=== PATIENT | male | born 1985 | race American Indian/Alaskan Native ===

== ENCOUNTER 2016-07-26 08:40 | Emergency (ER) | payer MEDICAID ==
[2016-07-26 08:46] VITALS: BP 92/42; PULSE 102; RESP 19; TEMP 98.4; O2SAT 100; BMI 62.0
[2016-07-26] MEDS ORDERED: Bacitracin Opht OINT 3.5GM OD STA (09:41)
[2016-07-26] MEDS ORDERED: Insulin Regular 100 units/ml IVP ONE (10:33)
--- NOTE | 2016-07-26 10:38 | ED PDOC ---
HPI: Eye Injury/Pain Time Seen by Provider: 07/26/16 09:10 Chief Complaint (Nursing): Eye Problem Chief Complaint (Provider): R eyelid swelling History Per: Patient History/Exam Limitations: no limitations Onset/Duration Of Symptoms: Days (2) Current Symptoms Are (Timing): Still Present Wears Contact Lens?: No Associated Symptoms: Swelling, Itching. denies: Pain, Decreased Vision, FB Sensation, Discharge From Eye Additional Complaint(s): 30yo male c/o R upper eyelid swelling since yesterday. Denies redness to eye, change in vision, discharge, itching to eye or foreign body sensation. Admits to mild discomfort to upper eyelid. Past Medical History Reviewed: Historical Data, Nursing Documentation, Vital Signs Vital Signs: Last Vital Signs Temp 98.4 F 07/26/16 08:44 Pulse 102 H 07/26/16 08:44 Resp 19 07/26/16 08:44 BP 92/42 L 07/26/16 08:44 Pulse Ox 100 07/26/16 08:44 - Medical History PMH: Diabetes, Seizures - Family History Family History: States: Unknown Family Hx - Living Arrangements Living Arrangements: Other (nursing home) - Social History Current smoker - smoking cessation education provided: No Drugs: Denies - Home Medications Home Medications: Ambulatory Orders Medication Instructions Recorded Oseltamivir [Tamiflu] 75 mg PO BID #10 cap 04/24/15 Clindamycin [Cleocin] 300 mg PO TID #21 cap 07/26/16 metFORMIN [glucOPHAGE] 500 mg PO BID #20 tab 07/26/16 - Allergies Allergies/Adverse Reactions: Allergies Allergy/AdvReac Type Severity Reaction Status Date / Time ibuprofen [From Motrin] Allergy NAUSEA Verified 04/23/15 23:10 Review of Systems Constitutional: Negative for: Fever, Chills Eyes: Positive for: Eyelid Inflammation, Redness. Negative for: Pain, Vision Change, Conjunctivae Inflammation Respiratory: Negative for: Cough, Shortness of Breath Gastrointestinal: Negative for: Nausea, Vomiting Genitourinary Male: Negative for: Dysuria, Frequency Musculoskeletal: Negative for: Neck Pain, Shoulder Pain Skin: Negative for: Rash, Lesions, Jaundice Neurological: Negative for: Weakness, Numbness, Headache, Dizziness Psych: Negative for: Anxiety Physical Exam - Reviewed Nursing Documentation Reviewed: Yes - Physical Exam Appears: Positive for: Well, Non-toxic, No Acute Distress Head Exam: Positive for: ATRAUMATIC, NORMAL INSPECTION, NORMOCEPHALIC Skin: Positive for: Normal Color, Warm, DRY Eye Exam: Positive for: EOMI, PERRL. Negative for: Other (R upper lid mild blepharitis; conjunctiva, cornea and margins unremarkable. ) ENT: Positive for: Normal ENT Inspection. Negative for: Pharyngeal Erythema Neck: Positive for: Normal, Painless ROM Cardiovascular/Chest: Positive for: Regular Rate, Rhythm Respiratory: Positive for: CNT, Normal Breath Sounds Gastrointestinal/Abdominal: Positive for: Normal Exam, Bowel Sounds, Soft. Negative for: Tenderness, Guarding Back: Positive for: Normal Inspection Extremity: Positive for: Normal ROM Neurologic/Psych: Positive for: Alert, Oriented. Negative for: Motor/Sensory Deficits, Aphasia - ECG O2 Sat by Pulse Oximetry: 100 Medical Decision Making Medical Decision Making: Pt nonadherent to oral antihyperglycemics. Metformin and low dose insulin ordered (pt requested insulin but does not take as outpatient as "I dont like needles"). Bacitracin ointment given to patient with teaching instructions performed by rfp writer. HR now 80, no signs severe dehydration or DKA. Needs followup w clinic for further testing and medication adherence. Referred ophtho for mild blepharitis if persists. Rec warm compress 4x daily. No signs periorbital or preseptal cellulitis but will cover w oral ABx given hyperglycemia. Disposition - Clinical Impression Clinical Impression: Blepharitis of eyelid of right eye - Disposition Referrals: [facility] [Outside] Tyler Velasco MD [Staff Provider] - Condition: STABLE Additional Instructions: Patient should avoid close contact with others for 5 days. Take medications as directed. See eye doctor, Dr Velasco, in 1-2 days for followup, call today for appointment. Return to ER for any new or worsening symptoms. See clinic for further testing and medications to care for your diabetes. Prescriptions: Clindamycin [Cleocin] 300 mg PO TID #21 cap metFORMIN [glucOPHAGE] 500 mg PO BID #20 tab Instructions: Blepharitis (ED), Diabetic Hyperglycemia (ED)
[2016-07-26] MEDS ORDERED: Insulin Regular 100 units/ml ONE (10:59)
[2016-07-26] MEDS ORDERED: Amoxicillin-Clav 875-125 mg Tab PO SCH (21:00)
== END 2016-07-26 10:50 | disposition home or self-care (01) ==
LOC: H.ER 08:40
DX: H01.021 Squamous blepharitis right upper eyelid (principal); E11.65 Type 2 diabetes mellitus with hyperglycemia

== ENCOUNTER 2017-02-19 18:31 | Observation (INO) | payer MEDICAID ==
[2017-02-19 18:31] VITALS: BMI 62.0
[2017-02-19] MEDS ORDERED: DiphenhydrAMINE 50 mg/ml Inj IM STA (18:47)
[2017-02-19] MEDS ORDERED: methylPREDNISolone 125 MG in Sodium Chloride 0.9% 50 ML IV STA (18:47)
[2017-02-19] MEDS ORDERED: EPINEPHRINE HCL MR ONE (18:51)
[2017-02-19] MEDS ORDERED: Sodium Chloride 0.9% 1,000 ML IV STA (18:55)
[2017-02-19] MEDS ORDERED: DiphenhydrAMINE 50 mg/ml Inj IVP STA (18:59)
[2017-02-19] MEDS ORDERED: EPINEPHrine 1 mg/ml (1:1000) Inj IM ONE (18:59)
--- NOTE | 2017-02-19 19:08 | ED PDOC ---
HPI: Allergic Reaction Time Seen by Provider: 02/19/17 18:55 Chief Complaint (Nursing): Allergic Reaction Chief Complaint (Provider): Allergic Reaction History Per: Patient History/Exam Limitations: no limitations Additional Complaint(s): 31 y/o male with past medical history of diabetes presents to the ED for evaluation of tongue swelling after drinking lemonade today. Denies difficulty breathing or swallowing. Denies history of allergies. Past Medical History Vital Signs: Last Vital Signs Temp 98.0 F 02/19/17 18:35 Pulse 77 02/19/17 18:35 Resp 16 02/19/17 18:35 BP 111/62 02/19/17 18:35 Pulse Ox 98 02/19/17 18:35 - Medical History PMH: Diabetes, Seizures - Family History Family History: States: Unknown Family Hx - Immunization History Hx Tetanus Toxoid Vaccination: No Hx Influenza Vaccination: No Hx Pneumococcal Vaccination: No - Home Medications Home Medications: Ambulatory Orders Medication Instructions Recorded Clotrimazole 1% Cream [Lotrimin 1%] 1 applic EXT BID #1 tube 09/24/16 metFORMIN [glucOPHAGE] 500 mg PO BID #60 tab 09/24/16 - Allergies Allergies/Adverse Reactions: Allergies Allergy/AdvReac Type Severity Reaction Status Date / Time ibuprofen [From Motrin] Allergy NAUSEA Verified 02/19/17 18:33 Review of Systems ROS Statement: Except As Marked, All Systems Reviewed And Found Negative (As per HPI, otherwise negative) Respiratory: Negative for: Shortness of Breath Gastrointestinal: Negative for: Other (Difficulty swallowing) Musculoskeletal: Positive for: Other (Tongue swelling) Physical Exam - Reviewed Nursing Documentation Reviewed: Yes Vital Signs Reviewed: Yes - Physical Exam Appears: Positive for: Well, Non-toxic, No Acute Distress Head Exam: Positive for: ATRAUMATIC, NORMAL INSPECTION, NORMOCEPHALIC Skin: Positive for: Normal Color, Warm, Dry Eye Exam: Positive for: Normal appearance ENT: Positive for: Normal ENT Inspection, Other (Right side of the tongue is moderately swollen) Neck: Positive for: Normal, Supple Cardiovascular/Chest: Positive for: Regular Rate, Rhythm. Negative for: Murmur Respiratory: Positive for: Normal Breath Sounds. Negative for: Accessory Muscle Use, Respiratory Distress Gastrointestinal/Abdominal: Positive for: Normal Exam, Soft, Other (mild lip swelling noted) Back: Positive for: Normal Inspection Extremity: Positive for: Normal ROM. Negative for: Deformity Neurologic/Psych: Positive for: Alert, Oriented (3) - Laboratory Results Result Diagrams: 02/19/17 19:24 02/19/17 19:24 - ECG O2 Sat by Pulse Oximetry: 98 (RA) Pulse Ox Interpretation: Normal - Progress ED Course And Treament: Re-evaluated 2.5 hours post medications with mild improvement noted, but persistent tongue swelling d/w Dr. Wong Seen by Dr. Law in ED. Does not feel patient need ICU monitor at this time. Patient to be admitted tele observation. Disposition - Clinical Impression Clinical Impression: Allergic reaction - Patient ED Disposition Is Patient to be Admitted: Yes - Disposition Disposition Time: 21:00 Condition: FAIR Forms: [employer] ([place]) Medical Decision Making Medical Decision Making: Time: 18:46 Plan: EKG BMP CBC w/ differential Benadryl 50mg IVP Epinephrine 1:1000 0.3mg IM Pepcid 20mg IVP solumedrol 125mg IVP Sodium chloride 1L IV Content Curator Cont Accucheck EKG documentation Time: 18:50 --Patient was reexamined by Dr. Wong --Benadryl 50mg IVP and Solumedrol 0.3mg 1:1000 epi given in ER Scribe Attestation: Documented by Mimi Christiansen acting as a scribe for RDAHA Corrales. Scribe Attestation: All medical record entries made by the Scribe were at my direction and personally dictated by me. I have reviewed the chart and agree that the record accurately reflects my personal performance of the history, physical exam, medical decision making, and the department course for this patient. I have also personally directed, reviewed, and agree with the discharge instructions and disposition.
--- NOTE | 2017-02-19 19:08 | ED PDOC ---
HPI: Allergic Reaction Chief Complaint (Nursing): Allergic Reaction Past Medical History Vital Signs: Last Vital Signs Temp 98.0 F 02/19/17 18:35 Pulse 77 02/19/17 18:35 Resp 16 02/19/17 18:35 BP 111/62 02/19/17 18:35 Pulse Ox 98 02/19/17 18:35 - Medical History PMH: Diabetes, Seizures - Family History Family History: States: Unknown Family Hx - Immunization History Hx Tetanus Toxoid Vaccination: No Hx Influenza Vaccination: No Hx Pneumococcal Vaccination: No - Home Medications Home Medications: Ambulatory Orders Medication Instructions Recorded Clotrimazole 1% Cream [Lotrimin 1%] 1 applic EXT BID #1 tube 09/24/16 metFORMIN [glucOPHAGE] 500 mg PO BID #60 tab 09/24/16 - Allergies Allergies/Adverse Reactions: Allergies Allergy/AdvReac Type Severity Reaction Status Date / Time ibuprofen [From Motrin] Allergy NAUSEA Verified 02/19/17 18:33 - ECG O2 Sat by Pulse Oximetry: 98 Disposition - Disposition
[2017-02-19 19:30] LABS: BASO % 0.5 % (0.0-2.0); EOS # 0.2 K/uL (0.0-0.7); EOS % 3.3 % (0.0-4.0); HEMOGLOBIN 12.6 g/dL (12.0-18.0); LYMPH # 2.4 K/uL (1.0-4.3); LYMPH % 38.5 % (20.0-40.0); MEAN CELL VOLUME 80.3 fl (80.0-94.0); MEAN CORPUSCULAR HEMOGLOBIN 26.2 pg (27.0-31.0); MEAN CORPUSCULAR HGB CONC 32.6 g/dL (33.0-37.0); MONO # 0.5 K/uL (0.0-0.8); MONO % 7.6 % (0.0-10.0); NEUT # 3.2 K/uL (1.8-7.0); NEUT % 50.1 % (50.0-75.0); NRBC % 0.1 % (0.0-0.0); RBC 4.8 Mil/uL (4.40-5.90); WHITE BLOOD COUNT 6.3 K/uL (4.8-10.8)
[2017-02-19 19:36] LABS: BLOOD UREA NITROGEN 14 mg/dl (9-20); CALCIUM 9.4 mg/dL (8.4-10.2); GFR AFRICAN-AMERICAN > 60; GFR NON-AFRICAN AMERICAN > 60
[2017-02-19] MEDS ORDERED: Albuterol 0.083% Inhal Sol (2.5 mg/3 mL) UD INH PRN (22:29)
[2017-02-19] MEDS ORDERED: Sodium Chloride 0.9% 1,000 ML IV SCH (22:30)
[2017-02-19] MEDS: MethylPREDNISolone 40 mg Vial IVP SCH (22:32)
--- NOTE | 2017-02-19 22:33 | CP.PCM.HP ---
History of Present Illness - History of Present Illness History of Present Illness: PCP: None Chief complaint: Swollen tongue The patient was seen and evaluated in the ED HPI: 31 years old Homeless male with hx of non compliance with medicine, DM II, Asthma and Seizure coming to the ED for evaluation of swollen tongue. He claims that upon waking from a nap, he found his tongue feeing heavy, strange and filling up his mouth. He told the ED staff that he drank Lemonade earlier. this is the first time he is having swelling of the tongue. He has not eaten nor drank any different foods nor medication, no fever, headaches, nausea, vomits, difficulty in breathing nor swallowing. Ibuprophen causes gastrointestinal bleed. PMH: Non-compliance with mediation; DM II; Seizure; Arthritis; Lactose intolerance; Fatty liver; Right Inguinal Hernia; Asthma; Noncompliance with medication PSH: Denies SH: No illegal drug use; No Alcohol; Non Smoker; homeless; Unemployed, uses cane to ambulate FH: State: no known family history Allergies: NKDA Adverse reaction: Ibuprophen Medication: Reviewed Present on Admission - Present on Admission Any Indicators Present on Admission: Yes History of DVT/PE: No History of Uncontrolled Diabetes: Yes Urinary Catheter: No Decubitus Ulcer Present: No Review of Systems - Constitutional Constitutional: absent: Anorexia, Chills, Fatigue, Fever, Frequent Falls, Headache Additional comments: Funny sensation in the head - EENT Eyes: Requires Corrective Lenses. absent: Blurred Vision, Diplopia, Floaters Ears: absent: Decreased Hearing, Ear Discharge, Ear Pain, Tinnitus Nose/Mouth/Throat: absent: Epistaxis, Nasal Congestion, Sinus Pain, Sinus Pressure - Cardiovascular Cardiovascular: absent: Chest Pain, Dyspnea, Edema - Respiratory Respiratory: absent: Cough, Dyspnea, Wheezing, Stridor, Pain on Inspiration, Chest Congestion - Gastrointestinal Gastrointestinal: Diarrhea. absent: Constipation, Nausea, Vomiting Additional comments: lactose intolerance - Genitourinary Genitourinary: absent: Dysuria, Flank Pain, Hematuria, Urinary Frequency - Musculoskeletal Musculoskeletal: Abnormal Gait, Arthralgias Additional comments: Unsteady gait - Integumentary Integumentary: absent: Pruritus, Rash, Skin Ulcer, Sores, Striae, Swelling - Neurological Neurological: absent: Confusion, Numbness, Weakness Additional comments: Uses Cane to ambulate - Psychiatric Psychiatric: absent: Anxiety, Depression, Panic Attacks - Endocrine Endocrine: absent: Palpitations, Polydipsia, Polyphagia, Polyuria - Hematologic/Lymphatic Hematologic: absent: Easy Bleeding, Easy Bruising Past Patient History - Past Medical History & Family History Past Medical History?: Yes - Past Social History Smoking Status: Never Smoked Chewing Tobacco Use: No Cigar Use: No Alcohol: None Drugs: Denies Home Situation {Lives}: Homeless - CARDIAC Hx Cardiac Disorders: No - PULMONARY Hx Asthma: Yes - NEUROLOGICAL Hx Seizures: Yes - HEENT Hx HEENT Problems: No - RENAL Hx Chronic Kidney Disease: No - ENDOCRINE/METABOLIC Hx Diabetes Mellitus Type 2: Yes - HEMATOLOGICAL/ONCOLOGICAL Hx Blood Disorders: No - INTEGUMENTARY Hx Dermatological Problems: No - MUSCULOSKELETAL/RHEUMATOLOGICAL Hx Arthritis: Yes - GASTROINTESTINAL Hx Gastrointestinal Disorders: Yes Other/Comment: lactulose intolerance. Fatty liver - GENITOURINARY/GYNECOLOGICAL Hx Genitourinary Disorders: No - PSYCHIATRIC Hx Psychophysiologic Disorder: No Hx Substance Use: No - SURGICAL HISTORY Hx Surgeries: No - ANESTHESIA Hx Anesthesia: No Hx Anesthesia Reactions: No Meds Allergies/Adverse Reactions: Allergies Allergy/AdvReac Type Severity Reaction Status Date / Time ibuprofen [From Motrin] Allergy NAUSEA Verified 02/19/17 18:33 Physical Exam - Constitutional Appears: No Acute Distress - Head Exam Head Exam: ATRAUMATIC, NORMAL INSPECTION, NORMOCEPHALIC - Eye Exam Eye Exam: EOMI, Normal appearance Pupil Exam: NORMAL ACCOMODATION, PERRL - ENT Exam ENT Exam: Mucous Membranes Moist, Normal External Ear Exam Additional comments: Tongue swollen and large in mouth. - Neck Exam Neck exam: Positive for: Full Rom, Normal Inspection. Negative for: Tenderness - Respiratory Exam Respiratory Exam: Clear to Auscultation Bilateral. absent: Rales, Rhonchi, Wheezes - Cardiovascular Exam Cardiovascular Exam: REGULAR RHYTHM, RRR, +S1, +S2 - GI/Abdominal Exam Additional comments: Obese, Soft nontender, +ve bowel sounds, no viceromegalies - Rectal Exam Rectal Exam: Deferred - Extremities Exam Extremities exam: Negative for: joint swelling, pedal edema Additional comments: pain to the left ankle on palpation, no palpable edema - Back Exam Back exam: NORMAL INSPECTION. absent: CVA tenderness (L), CVA tenderness (R) - Neurological Exam Neurological exam: Alert, CN II-XII Intact, Oriented x3, Reflexes Normal - Psychiatric Exam Psychiatric exam: Normal Affect, Normal Mood - Skin Skin Exam: Dry, Intact, Normal Color, Warm Results - Vital Signs Recent Vital Signs: Last Vital Signs Temp 98.0 F 02/19/17 18:35 Pulse 77 02/19/17 18:35 Resp 16 02/19/17 18:35 BP 111/62 02/19/17 18:35 Pulse Ox 98 02/19/17 22:21 - Labs Result Diagrams: 02/19/17 19:24 02/19/17 19:24 Labs: Laboratory Results - last 24 hr 02/19/17 02/19/17 02/19/17 19:17 19:24 19:24 WBC 6.3 RBC 4.80 Hgb 12.6 Hct 38.5 MCV 80.3 MCH 26.2 L MCHC 32.6 L RDW 14.0 Plt Count 224 MPV 9.0 Neut % (Auto) 50.1 Lymph % (Auto) 38.5 [place] % (Auto) 7.6 Eos % (Auto) 3.3 Baso % (Auto) 0.5 Neut # 3.2 Lymph # 2.4 [place] # 0.5 Eos # 0.2 Baso # 0.0 Sodium 140 Potassium 4.3 Chloride 101 Carbon Dioxide 29 Anion Gap 14 BUN 14 Creatinine 0.9 Est GFR ( Amer) > 60 Est GFR (Non-Af Amer) > 60 POC Glucose (mg/dL) 145 H Random Glucose 147 H Calcium 9.4 - EKG Data EKG comments: NSR 71/min Assessment & Plan - Assessment and Plan (Free Text) Assessment: #. Allergic reaction with Angioedema #. DM II with hyperglycemia #. Hx of Seizure #. Hx of Asthma #. Nocompliance with medication #. Obesity Plan: 31 years old Homeless male, non compliance with medicine with hx of DM II, Asthma and Seizure coming to the ED for evaluation of swollen tongue. This is the first time he is having swelling of the tongue. He has not eaten nor drank any different foods nor medication, no fever, headaches, nausea, vomits, difficulty in breathing nor swallowing. Ibuprophen causes gastrointestinal bleed. #. Allergic reaction with Angioedema - Admit to Telemetry for close observation - Methylprednisolone IV Q 6H - Benadryl IV Q6 #. DM II with hyperglycemia - Regular insulin slicing scle according to Accucheck - Clear liquid diet - Hold Metformin #. Hx of Seizure - No Home medication - Ativan PRN #. Hx of Asthma - Albuterol PRN #. Nocompliance with medication #. Obesity with fatty liver #. Stress ulcer Prophylaxis with Pepcid #. DVT prophylaxis with Lovenox #. Code Status: full - Date & Time Date: 02/19/17 Time: 22:33
[2017-02-19 23:15] VITALS: O2SAT 96
[2017-02-19] MEDS: Insulin Regular 100 units/ml SC SCH (23:29)
[2017-02-20] MEDS ORDERED: methylPREDNISolone 40 MG in Sodium Chloride 0.9% 50 ML IVPB SCH
[2017-02-20] MEDS ORDERED: MethylPREDNISolone 40 mg Vial ONE ×2 (01:04→08:00)
[2017-02-20] MEDS: MethylPREDNISolone 40 mg Vial IVP SCH (01:15)
[2017-02-20 06:29] VITALS: TEMP 98.4
[2017-02-20] MEDS ORDERED: MethylPREDNISolone 40 mg Vial IVP SCH (07:15)
[2017-02-20] MEDS ORDERED: Insulin Regular 100 units/ml SC SCH (07:30)
[2017-02-20 07:43] VITALS: BP 147/68; PULSE 61; RESP 22
[2017-02-20] MEDS ORDERED: Insulin Regular 100 units/ml ONE (08:00)
[2017-02-20] MEDS: Insulin Regular 100 units/ml SC SCH (08:03)
--- NOTE | 2017-02-20 08:16 | CARD ---
APPROVED REPORT EKG Measurement Heart [id number] <Conclusion> Normal sinus rhythm Nonspecific T wave abnormality Abnormal ECG artefact present
[2017-02-20] MEDS ORDERED: Enoxaparin 40 mg Syringe SC SCH (09:00)
--- NOTE | 2017-02-20 12:23 | CP.PCM.DIS ---
Provider - Provider Date of Admission: 02/19/17 21:50 Attending physician: Gregory Law Primary care physician: none Time Spent in preparation of Discharge (in minutes): 20 Hospital Course - Lab Results Lab Results: Most Recent Lab Values WBC 6.3 K/uL (4.8-10.8) 02/19/17 19:24 RBC 4.80 Mil/uL (4.40-5.90) 02/19/17 19:24 Hgb 12.6 g/dL (12.0-18.0) 02/19/17 19:24 Hct 38.5 % (35.0-51.0) 02/19/17 19:24 MCV 80.3 fl (80.0-94.0) 02/19/17 19:24 MCH 26.2 pg (27.0-31.0) L 02/19/17 19:24 MCHC 32.6 g/dL (33.0-37.0) L 02/19/17 19:24 RDW 14.0 % (11.5-14.5) 02/19/17 19:24 Plt Count 224 K/uL (130-400) 02/19/17 19:24 MPV 9.0 fl (7.2-11.7) 02/19/17 19:24 Neut % (Auto) 50.1 % (50.0-75.0) 02/19/17 19:24 Lymph % (Auto) 38.5 % (20.0-40.0) 02/19/17 19:24 [place] % (Auto) 7.6 % (0.0-10.0) 02/19/17 19:24 Eos % (Auto) 3.3 % (0.0-4.0) 02/19/17 19:24 Baso % (Auto) 0.5 % (0.0-2.0) 02/19/17 19:24 Neut # 3.2 K/uL (1.8-7.0) 02/19/17 19:24 Lymph # 2.4 K/uL (1.0-4.3) 02/19/17 19:24 [place] # 0.5 K/uL (0.0-0.8) 02/19/17 19:24 Eos # 0.2 K/uL (0.0-0.7) 02/19/17 19:24 Baso # 0.0 K/uL (0.0-0.2) 02/19/17 19:24 Sodium 140 mmol/l (132-148) 02/19/17 19:24 Potassium 4.3 MMOL/L (3.6-5.0) 02/19/17 19:24 Chloride 101 mmol/L (98-107) 02/19/17 19:24 Carbon Dioxide 29 mmol/L (22-30) 02/19/17 19:24 Anion Gap 14 (10-20) 02/19/17 19:24 BUN 14 mg/dl (9-20) 02/19/17 19:24 Creatinine 0.9 mg/dl (0.8-1.5) 02/19/17 19:24 Est GFR ( Amer) > 60 02/19/17 19:24 Est GFR (Non-Af Amer) > 60 02/19/17 19:24 POC Glucose (mg/dL) 207 mg/dL (65-110) H 02/20/17 07:34 Random Glucose 147 mg/dL (75-110) H 02/19/17 19:24 Calcium 9.4 mg/dL (8.4-10.2) 02/19/17 19:24 - Hospital Course Hospital Course: 31 years old Homeless male, non compliant with medicine with hx of DM II, Asthma and Seizure coming to the ED for evaluation of swollen tongue. This is the first time he is having swelling of the tongue. He has not eaten nor drank any different foods nor medication, no fever, headaches, nausea, vomits, difficulty in breathing nor swallowing. Ibuprofen causes gastrointestinal bleed. He wsa placed under observation for possible allergic reaction and angioedema and was given Benadryl, Solumedrol , famotidine and IVF patient remained hemodynamically stable with no respiratory distres, no rashes. States that his tongue swelling resolved . will discharge patient home onstable conditions. 1.Suspected Allergic reaction with Angioedema placed under observation in telemetry Given Methylprednisolone IV , benadryl and famotidine swelling resolved as per patient will d/c home 2. DM II with hyperglycemia Regular insulin sliding scale according to Accucheck resume Metformin upon discharge 3. Hx of Seizure No Home medication 4. Hx of Asthma Albuterol PRN at home 5. Noncompliance with medication 6. Obesity with fatty liver BMI 62 Discharge Exam - Head Exam Head Exam: ATRAUMATIC, NORMAL INSPECTION, NORMOCEPHALIC Additional comments: morbidly obese - Eye Exam Eye Exam: EOMI, Normal appearance, PERRL Pupil Exam: NORMAL ACCOMODATION - ENT Exam ENT Exam: Mucous Membranes Moist, Normal Exam, Normal Oropharynx - Neck Exam Neck exam: Full Rom, Normal Inspection - Respiratory Exam Respiratory Exam: Clear to PA & Lateral, NORMAL BREATHING PATTERN. absent: Accessory Muscle Use, Prolonged Expiratory Phase, Rales, Rhonchi, Wheezes, Respiratory Distress, Stridor - Cardiovascular Exam Cardiovascular Exam: REGULAR RHYTHM, RRR, +S1, +S2. absent: JVD - GI/Abdominal Exam GI & Abdominal Exam: Normal Bowel Sounds, Soft. absent: Distended, Guarding, Rebound, Tenderness - Rectal Exam Rectal Exam: Deferred - Extremities Exam Extremities exam: normal capillary refill, normal inspection, pedal pulses present - Back Exam Back exam: NORMAL INSPECTION - Neurological Exam Neurological exam: Alert, CN II-XII Intact, Oriented x3, Reflexes Normal - Psychiatric Exam Psychiatric exam: Normal Affect - Skin Skin Exam: Dry, Intact, Normal Color, Warm Discharge Plan - Follow Up Plan Condition: STABLE Disposition: HOME/ ROUTINE Patient education suggested?: Yes Instructions: Allergies (ED), Angioedema (ED) Additional Instructions: Follow up with PMD Take medications as prescribed. Return to ED if symptoms worsen.
== END 2017-02-20 11:52 | disposition home or self-care (01) ==
LOC: H.ER 18:31 → INTOOBSV 21:50 → H.ERHOLD 21:50
PROVIDERS: ADMIT Internal Medicine; ATTEND Internal Medicine
DX: T78.3XXA Angioneurotic edema, initial encounter (principal); K76.0 Fatty (change of) liver, not elsewhere classified; Z59.0 Homelessness; Z91.14 Patient's other noncompliance with medication regimen; E73.9 Lactose intolerance, unspecified; J45.909 Unspecified asthma, uncomplicated; E11.65 Type 2 diabetes mellitus with hyperglycemia; Z68.44 Body mass index [BMI] 60.0-69.9, adult; E66.01 Morbid (severe) obesity due to excess calories; Z88.6 Allergy status to analgesic agent; M19.90 Unspecified osteoarthritis, unspecified site; R56.9 Unspecified convulsions
CPT/HCPCS: 80048; 82948; 85025; 93005; 96361; 96372; 96374; 96375; 96376; 99283; G0378; J0171; J1200; J1650; J2920; J2930; J7040

== ENCOUNTER 2017-06-08 17:28 | Emergency (ER) | payer MEDICAID, OTHER ==
[2017-06-08 17:28] VITALS: BMI 62.0
[2017-06-08 17:31] VITALS: O2SAT 96
[2017-06-08 19:17] LABS: BASO # 0.1 K/uL (0.0-0.2); BASO % 0.9 % (0.0-2.0); EOS # 0.1 K/uL (0.0-0.7); EOS % 1.8 % (0.0-4.0); LYMPH # 0.7 K/uL (1.0-4.3); LYMPH % 10.2 % (20.0-40.0); MEAN CELL VOLUME 79.4 fl (80.0-94.0); MEAN CORPUSCULAR HEMOGLOBIN 26.5 pg (27.0-31.0); MEAN CORPUSCULAR HGB CONC 33.4 g/dL (33.0-37.0); MEAN PLATELET VOLUME 8.7 fl (7.2-11.7); MONO # 0.4 K/uL (0.0-0.8); MONO % 5.9 % (0.0-10.0); NEUT # 5.7 K/uL (1.8-7.0); NEUT % 81.2 % (50.0-75.0); RBC 4.52 Mil/uL (4.40-5.90); RED CELL DISTRIBUTION WIDTH 14.6 % (11.5-14.5)
[2017-06-08 19:29] LABS: ALB/GLOB RATIO 1.2 (1.0-2.1); ALBUMIN 4.3 g/dL (3.5-5.0); ALT/SGPT 48 U/L (21-72); AST/SGOT 50 U/L (17-59); BLOOD UREA NITROGEN 11 mg/dl (9-20); CALCIUM 9.4 mg/dL (8.4-10.2); GFR AFRICAN-AMERICAN > 60; GFR NON-AFRICAN AMERICAN > 60
--- NOTE | 2017-06-08 19:34 | ED PDOC ---
HPI: General Adult Time Seen by Provider: 06/08/17 17:56 Chief Complaint (Nursing): Flu-like Symptoms Chief Complaint (Provider): Fever, bodyaches, sore throat History Per: Patient History/Exam Limitations: no limitations Onset/Duration Of Symptoms: Hrs Have you had recent travel within the past 21 days to any of the following countries: [place], [place], [place] or [place]?: No Current Symptoms Are (Timing): Still Present Additional Complaint(s): 31 yo obese male with DM and asthma presents with fever, sore throat and body aches. Pt states it began a few hours ago. 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 No SOB. No cough. Past Medical History Reviewed: Historical Data, Nursing Documentation, Vital Signs Vital Signs: Last Vital Signs Temp 102.5 F H 06/08/17 17:29 Pulse 104 H 06/08/17 17:29 Resp 16 06/08/17 17:29 BP 144/86 06/08/17 17:29 Pulse Ox 96 06/08/17 19:37 - Medical History PMH: Arthritis, Asthma, Diabetes, Seizures Denies: Chronic Kidney Disease - Surgical History Surgical History: No Surg Hx - Family History Family History: States: Unknown Family Hx - Immunization History Hx Tetanus Toxoid Vaccination: No Hx Influenza Vaccination: No Hx Pneumococcal Vaccination: No - Home Medications Home Medications: Ambulatory Orders Medication Instructions Recorded metFORMIN [glucOPHAGE] 500 mg PO BID #60 tab 09/24/16 Amoxicillin/Clavulanate [Augmentin 1 tab PO BID #20 tab 06/08/17 875 MG-125 MG] Oseltamivir [Tamiflu] 75 mg PO BID #10 cap 06/08/17 - Allergies Allergies/Adverse Reactions: Allergies Allergy/AdvReac Type Severity Reaction Status Date / Time ibuprofen [From Motrin] Allergy NAUSEA Verified 06/08/17 17:29 Review of Systems ROS Statement: Except As Marked, All Systems Reviewed And Found Negative Constitutional: Positive for: Fever, Chills, Sweats, Malaise ENT: Positive for: Throat Pain Respiratory: Negative for: Cough, Shortness of Breath Physical Exam - Reviewed Nursing Documentation Reviewed: Yes Vital Signs Reviewed: Yes - Physical Exam Appears: Positive for: Well, Non-toxic, No Acute Distress Head Exam: Positive for: ATRAUMATIC, NORMAL INSPECTION, NORMOCEPHALIC Skin: Positive for: Normal Color, Warm, DRY Eye Exam: Positive for: Normal appearance ENT: Positive for: Normal ENT Inspection Neck: Positive for: Normal, Painless ROM Cardiovascular/Chest: Positive for: Regular Rate, Rhythm Respiratory: Positive for: CNT, Normal Breath Sounds Gastrointestinal/Abdominal: Positive for: Normal Exam, Soft Back: Positive for: Normal Inspection Extremity: Positive for: Normal ROM Neurologic/Psych: Positive for: Alert, Oriented - Laboratory Results Result Diagrams: 06/08/17 19:00 06/08/17 19:00 - ECG O2 Sat by Pulse Oximetry: 96 Medical Decision Making Medical Decision Making: Lactic acid normal. WBC normal. VCG reviewed and patient is acidosis. 1L NS and repeat VBG. Disposition - Clinical Impression Clinical Impression: Influenza - Patient ED Disposition Is Patient to be Admitted: No Counseled Patient/Family Regarding: Diagnosis, Need For Followup, Rx Given - Disposition Disposition: Transfer of Care Disposition Time: 19:29 Condition: STABLE Prescriptions: Amoxicillin/Clavulanate [Augmentin 875 MG-125 MG] 1 tab PO BID #20 tab Oseltamivir [Tamiflu] 75 mg PO BID #10 cap Instructions: Flu, Adult (DC) Forms: [employer] ([place])
[2017-06-08 19:35] LABS: VENOUS BLOOD GAS BASE EXCESS -11.9 mmol/L (0.0-2.0); VENOUS BLOOD GAS PCO2 59 mmHg (40-60); VENOUS BLOOD GAS PO2 78 mm/Hg (30-55)
[2017-06-08] MEDS ORDERED: Sodium Chloride 0.9% 1,000 ML IV STA (19:37)
[2017-06-08 22:04] VITALS: BP 125/45; PULSE 86; RESP 18; TEMP 99
== END 2017-06-08 22:08 | disposition home or self-care (01) ==
LOC: H.ER 17:28
DX: J11.1 Influenza due to unidentified influenza virus with other respiratory manifestations (principal); E11.9 Type 2 diabetes mellitus without complications; Z79.84 Long term (current) use of oral hypoglycemic drugs; Z88.6 Allergy status to analgesic agent

== ENCOUNTER 2018-04-06 19:48 | Emergency (ER) | payer MEDICAID, OTHER ==
[2018-04-06 19:48] VITALS: BMI 62.0
[2018-04-06 20:03] VITALS: BP 136/85; PULSE 98; RESP 18; TEMP 98.3; O2SAT 98
--- NOTE | 2018-04-06 21:05 | ED PDOC ---
HPI: CCC, URI, Sore Throat Time Seen by Provider: 04/06/18 20:05 Chief Complaint (Nursing): ENT Problem Chief Complaint (Provider): ENT Problem History Per: Patient History/Exam Limitations: no limitations Associated Symptoms: Sore Throat, Nasal Congestion. denies: Fever, Chills, Nausea, Vomiting, Diarrhea Additional Complaint(s): Alhaji Carias is a 32 year old homeless male with a past medical history of asthma and diabetes, who presents to the emergency department complaining of having nasal congestion, sore throat and bodyaches, since yesterday. Patient states he has been very tired and that he in general has insomnia and only able to sleep for 1-2 hours. He denies using any illicit drugs or alcohol. Patient is also complaining of intermittent right leg pain that radiates from back. He states that he has chronic back problems. Patient denies fever chills, nausea, vomiting, diarrhea, or ear pain. Patient has not received flu vaccine. PMD: No provider Past Medical History Reviewed: Historical Data, Nursing Documentation, Vital Signs Vital Signs: Last Vital Signs Temp 98.3 F 04/06/18 20:01 Pulse 98 H 04/06/18 20:01 Resp 18 04/06/18 20:01 BP 136/85 04/06/18 20:01 Pulse Ox 98 04/06/18 20:01 - Medical History PMH: Arthritis, Asthma, Diabetes, Seizures Denies: Chronic Kidney Disease - Surgical History Surgical History: No Surg Hx - Family History Family History: States: Unknown Family Hx - Immunization History Hx Tetanus Toxoid Vaccination: No Hx Influenza Vaccination: No Hx Pneumococcal Vaccination: No - Home Medications Home Medications: Ambulatory Orders Medication Instructions Recorded metFORMIN [glucOPHAGE] 500 mg PO BID #60 tab 09/24/16 Amoxicillin/Clavulanate [Augmentin 1 tab PO BID #20 tab 06/08/17 875 MG-125 MG] Oseltamivir Cap [Tamiflu] 75 mg PO BID #10 cap 06/08/17 Oseltamivir Phosphate [Tamiflu] 75 mg PO BID 5 Days capsule 04/06/18 - Allergies Allergies/Adverse Reactions: Allergies Allergy/AdvReac Type Severity Reaction Status Date / Time ibuprofen [From Motrin] Allergy NAUSEA Verified 06/08/17 17:29 Review of Systems ROS Statement: Except As Marked, All Systems Reviewed And Found Negative Constitutional: Positive for: Other (insomnia ). Negative for: Fever, Chills ENT: Positive for: Nose Congestion, Throat Pain. Negative for: Ear Pain Gastrointestinal: Negative for: Nausea, Vomiting, Diarrhea Physical Exam - Reviewed Nursing Documentation Reviewed: Yes Vital Signs Reviewed: Yes - Physical Exam Appears: Positive for: Uncomfortable Head Exam: Positive for: ATRAUMATIC, NORMOCEPHALIC Skin: Positive for: Normal Color, Warm, Dry Eye Exam: Positive for: Normal appearance, EOMI, PERRL ENT: Positive for: Tonsillar Swelling (mild) Cardiovascular/Chest: Positive for: Regular Rate, Rhythm. Negative for: Murmur Respiratory: Positive for: Normal Breath Sounds. Negative for: Respiratory Distress Lymphatic: Positive for: Normal Exam Neurologic/Psych: Positive for: Alert, Oriented (x3), Other (appears slightly confused with slow speech but is answering questions appropriately) - Laboratory Results Result Diagrams: 04/06/18 20:55 04/06/18 20:55 - ECG O2 Sat by Pulse Oximetry: 98 (RA) Pulse Ox Interpretation: Normal Medical Decision Making Medical Decision Making: Time: 2031 Plan: --CBC with differential --CMP --Rapid flu --Rapid strep --Accucheck Rapid flu and rapid strep negative. Will treat empirically for Influenza with Tamiflu 75mg PO x 1 ordered. Labs unremarkable. Patient advised to f/u with primary care doctor for further treatment of diabetes and educated on potential ferry terminal agent complications of uncontrolled DM. Patient demonstrated understanding. Return instructions provided. Scribe Attestation: Documented by Sudeep Escalera, acting as a scribe for Kaila Marcos PA-C. Provider Scribe Attestation: All medical record entries made by the Scribe were at my direction and personally dictated by me. I have reviewed the chart and agree that the record accurately reflects my personal performance of the history, physical exam, medical decision making, and the department course for this patient. I have also personally directed, reviewed, and agree with the discharge instructions and disposition. Disposition - Clinical Impression Clinical Impression: Influenza - Patient ED Disposition Is Patient to be Admitted: No Counseled Patient/Family Regarding: Studies Performed, Diagnosis, Need For Followup, Rx Given - Disposition Referrals: [facility] [Outside] Disposition: Routine/Home Disposition Time: 23:25 Condition: STABLE Additional Instructions: Get lots of rest and drink lots of fluids. Avoid close contact with others as you are very contagious. Take Tylenol for body aches/fevers. Take Tamiflu to reduce severity of symptoms x 5 days. Return to ER if you have trouble breathing or are unable to drink enough fluids. Prescriptions: Oseltamivir Phosphate [Tamiflu] 75 mg PO BID 5 Days capsule Instructions: Flu, Adult (DC) Forms: [facility] (Ivorian) Print Language: MARTINIQU[place]IS
[2018-04-06 21:08] LABS: ALB/GLOB RATIO 1.3 (1.0-2.1); ALBUMIN 4.3 g/dL (3.5-5.0); ALT/SGPT 33 U/L (21-72); AST/SGOT 36 U/L (17-59); BLOOD UREA NITROGEN 15 mg/dl (9-20); CALCIUM 9.3 mg/dL (8.4-10.2); GFR NON-AFRICAN AMERICAN > 60
[2018-04-06 21:14] LABS: BASO % 0.6 % (0.0-2.0); EOS # 0.2 K/uL (0.0-0.7); EOS % 4.9 % (0.0-4.0); HEMOGLOBIN 12.1 g/dL (12.0-18.0); LYMPH # 1.2 K/uL (1.0-4.3); LYMPH % 23.2 % (20.0-40.0); MEAN CELL VOLUME 79.9 fl (80.0-94.0); MEAN CORPUSCULAR HGB CONC 32.6 g/dL (33.0-37.0); MONO # 0.5 K/uL (0.0-0.8); MONO % 9.2 % (0.0-10.0); NEUT # 3.1 K/uL (1.8-7.0); NEUT % 62.1 % (50.0-75.0); NRBC % 0.1 % (0.0-0.0); RBC 4.63 Mil/uL (4.40-5.90); RED CELL DISTRIBUTION WIDTH 14.3 % (11.5-14.5); WHITE BLOOD COUNT 5.1 K/uL (4.8-10.8)
== END 2018-04-06 23:43 | disposition home or self-care (01) ==
LOC: H.ER 19:48
DX: J11.1 Influenza due to unidentified influenza virus with other respiratory manifestations (principal); E11.9 Type 2 diabetes mellitus without complications; Z79.84 Long term (current) use of oral hypoglycemic drugs

== ENCOUNTER 2018-04-18 17:28 | Emergency (ER) | payer MEDICAID, OTHER ==
[2018-04-18 17:28] VITALS: BMI 62.0
[2018-04-18 17:38] VITALS: BP 158/90; PULSE 78; O2SAT 100
[2018-04-18 17:42] VITALS: RESP 19; TEMP 98.7
[2018-04-18] MEDS ORDERED: Sodium Chloride 0.9% 1,000 ML IV ONE (18:20)
--- NOTE | 2018-04-18 18:22 | ED PDOC ---
HPI: Headache Time Seen by Provider: 04/18/18 17:45 Chief Complaint (Nursing): Headache Chief Complaint (Provider): Left ear and mastoid tenderness History Per: Patient History/Exam Limitations: no limitations Onset/Duration Of Symptoms: Hrs (x1) Current Symptoms Are (Timing): Still Present Additional Complaint(s): Patient is a 32 y/o male with a PMHx of arthritis, asthma, diabetes, and seizures who presents to the ED for evaluation of a left-sided headache, one hour prior to arrival. Patient also complains of associated left ear, jaw, and shoulder pain. Patient denies nausea and vomiting. Of note, patient was diagnosed with the flu last week. PCP: None Provided Past Medical History Reviewed: Historical Data, Nursing Documentation, Vital Signs Vital Signs: Last Vital Signs Temp 98.7 F 04/18/18 17:40 Pulse 78 04/18/18 17:40 Resp 19 04/18/18 17:40 BP 158/90 H 04/18/18 17:38 Pulse Ox 100 04/18/18 17:40 - Medical History PMH: Arthritis, Asthma, Diabetes, Seizures Denies: Chronic Kidney Disease - Surgical History Surgical History: No Surg Hx - Family History Family History: States: Unknown Family Hx - Immunization History Hx Tetanus Toxoid Vaccination: No Hx Influenza Vaccination: No Hx Pneumococcal Vaccination: No - Home Medications Home Medications: Ambulatory Orders Medication Instructions Recorded metFORMIN [glucOPHAGE] 500 mg PO BID #60 tab 09/24/16 Amoxicillin/Clavulanate [Augmentin 1 tab PO BID #20 tab 06/08/17 875 MG-125 MG] Oseltamivir Cap [Tamiflu] 75 mg PO BID #10 cap 06/08/17 Oseltamivir Phosphate [Tamiflu] 75 mg PO BID 5 Days capsule 04/06/18 Ofloxacin Otic 0.3% [Floxin 0.3% 4 drop QID #5 ml 04/18/18 Otic Soln] - Allergies Allergies/Adverse Reactions: Allergies Allergy/AdvReac Type Severity Reaction Status Date / Time ibuprofen [From Motrin] Allergy NAUSEA Verified 06/08/17 17:29 Review of Systems ROS Statement: Except As Marked, All Systems Reviewed And Found Negative ENT: Positive for: Ear Pain (left) Gastrointestinal: Negative for: Nausea, Vomiting Musculoskeletal: Positive for: Shoulder Pain (left), Other (Left jaw pain) Neurological: Positive for: Headache (left-sided) Physical Exam - Reviewed Nursing Documentation Reviewed: Yes Vital Signs Reviewed: Yes - Physical Exam Appears: Positive for: Non-toxic, No Acute Distress Head Exam: Positive for: ATRAUMATIC, NORMAL INSPECTION, NORMOCEPHALIC Skin: Positive for: Normal Color, Warm, Dry Eye Exam: Positive for: EOMI, Normal appearance, PERRL ENT: Positive for: TM Is/Are (injected, intact, reflective to light, landmarks are visible, and erythematous on the right; tragus pull positive, edematous, and swelling on the left), Other (left mastoid tenderness) Neck: Positive for: Normal, Painless ROM, Supple Cardiovascular/Chest: Positive for: Regular Rate, Rhythm. Negative for: Murmur Respiratory: Positive for: Normal Breath Sounds. Negative for: Respiratory Distress Extremity: Positive for: Normal ROM. Negative for: Pedal Edema, Deformity Neurologic/Psych: Positive for: Alert, Oriented. Negative for: Motor/Sensory D eficits - ECG O2 Sat by Pulse Oximetry: 100 (RA) Pulse Ox Interpretation: Normal Medical Decision Making Medical Decision Making: Time: 1815 Impression: TMJ Pain r/o Malignant Otitis Plan: CT Mastoid w/ Contrast CBC CMP Pain Meds (Toradol) IV Fluids Time: 1836 The patient declines to have further medical evaluation and treatment and wishes to leave the Emergency Department. This action is against my medical advice to the patient and with informed refusal. The patient was told that evaluation and treatment are necessary and a full explanation of the rationale was given. The risks of leaving were explained to the patient and include, but are not limited to, worsening of known or currently unknown conditions, permanent disability and from undiagnosed or untreated conditions. Based on my conversations with the patient, the patient has the capacity to make this informed decision and understands the clinical situation and my explanation of the risks of leaving. The patient voluntarily accepts these risks and a signed AMA form documenting our conversation was obtained. The patient was given the opportunity to ask questions and reconsider. The patient was encouraged to return to the Emergency Department at any time for further evaluation. Patient is stable for discharge and will be prescribed antibiotics for an external otitis media. Scribe Attestation: Documented by Javid Rm, acting as a scribe for RADHA Julien. Provider Scribe Attestation: All medical record entries made by the Scribe were at my direction and personally dictated by me. I have reviewed the chart and agree that the record accurately reflects my personal performance of the history, physical exam, medical decision making, and the department course for this patient. I have also personally directed, reviewed, and agree with the discharge instructions and disposition. Disposition - Clinical Impression Clinical Impression: Otitis externa - Disposition Referrals: FAMILY PROVIDER,NO [Family Provider] - Disposition Time: 18:51 Condition: STABLE Prescriptions: Ofloxacin Otic 0.3% [Floxin 0.3% Otic Soln] 4 drop QID #5 ml Instructions: Outer Ear Infection, Outer Ear Infection (DC) Forms: [facility] (British)
== END 2018-04-18 18:54 | disposition left against medical advice (07) ==
LOC: H.ER 17:28 → SUPCPDRO 17:28 → H.ER 18:54
DX: H60.92 Unspecified otitis externa, left ear (principal); E11.9 Type 2 diabetes mellitus without complications; Z79.84 Long term (current) use of oral hypoglycemic drugs; Z88.6 Allergy status to analgesic agent